=== PATIENT | male | born 1935 | race Two or more races ===

== ENCOUNTER 2019-03-24 02:12 | Emergency (ER) | payer MEDICARE, BC ==
[~2019-03-24] VITALS: Ht 175.3 cm; Wt 77.1 kg
[2019-03-24 02:17] VITALS: BP 127/82
--- NOTE | 2019-03-24 02:36 | NUR ---
RECTAL TEMP 101.7. AWARE.
--- NOTE | 2019-03-24 02:36 | NUR ---
TECH AT BEDSIDE FOR EKG
--- NOTE | 2019-03-24 02:48 | NUR ---
KE INITIATED. BLOOD DRAWN AND GIVEN TO LAB.
[2019-03-24 02:56] LABS: BASOPHILS # (AUTO) 0.1 /CMM (0.0-0.2); BASOPHILS % (AUTO) 1.2 % (0.0-2.0); EOSINOPHILS % (AUTO) 0.2 % (0.0-6.0); HEMATOCRIT 29 % (39-51); LYMPHOCYTES # (AUTO) 0.5 /CMM (0.8-4.8); LYMPHOCYTES % (AUTO) 4.1 % (20.0-44.0); MEAN CORPUSCULAR HGB CONC 31 g/dl (31.0-36.0); MEAN CORPUSCULAR VOLUME 92 fL (80-96); MONOCYTES # (AUTO) 1.5 /CMM (0.1-1.30); MONOCYTES % (AUTO) 12.4 % (2.0-12.0); NEUTROPHILS # (AUTO) 9.8 /CMM (1.8-8.9); NEUTROPHILS % (AUTO) 82.1 % (43.0-81.0); PLATELET COUNT (AUTO) 240 /CMM (150-450); RED BLOOD CELL COUNT(AUTO) 3.15 MIL/uL (4.5-6.0); WHITE BLOOD COUNT (AUTO) 11.9 K/uL (4.3-11.0)
[2019-03-24 03:00] LABS: CALCIUM, SERUM 10.3 mg/dL (8.5-10.1); CARBON DIOXIDE 24 mmol/L (21-32); CHLORIDE 105 mmol/L (98-107); CREATININE 4.8 mg/dL (0.6-1.3); GLUCOSE 150 mg/dL (74-106); POTASSIUM 4.6 mmol/L (3.5-5.1); SODIUM SERUM 138 mmol/L (136-145); UREA NITROGEN, BLOOD 74 mg/dL (7-18)
[2019-03-24] MEDS ORDERED: IBUPROFEN 400 MG TABLET PO ONE (03:00)
--- NOTE | 2019-03-24 03:04 | NUR ---
RADIOLOGY AT BEDSIDE FOR XRAY
[2019-03-24] MEDS ORDERED: IBUPROFEN 400 MG TABLET ONE (03:11)
[2019-03-24 03:13] LABS: ALANINE AMINOTRANSFERASE 14 U/L (12-78); ALBUMIN 2.9 g/dL (3.4-5.0); ALKALINE PHOSPHATASE 68 U/L (46-116); ASPARTATE AMINOTRANSFERASE 13 U/L (15-37); B-TYPE NATRIURETIC PEPTIDE 1036 PG/ML (0-125); BILIRUBIN,DIRECT 0.1 mg/dL (0.0-0.2); BILIRUBIN,TOTAL 0.3 mg/dL (0.2-1.0); TOTAL PROTEIN, SERUM 6.3 g/dL (6.4-8.2)
--- NOTE | 2019-03-24 03:26 | NUR ---
URINE COLLECTED AND SENT TO LAB
[2019-03-24 03:42] LABS: APPEARANCE,URINE Clear (CLEAR); BILIRUBIN,URINE Negative (NEGATIVE); BLOOD, URINE Small Ery/uL (NEGATIVE); COLOR,URINE Yellow (YELLOW); KETONES,URINE Negative (NEGATIVE); LEUKOCYTE ESTERASE ,URINE Negative (NEGATIVE); NITRITE, URINE Negative (NEGATIVE); PROTEIN,URINE >=300 mg/dl (NEGATIVE); UGLUCOSE Negative (NEGATIVE); UROBILINOGEN,URINE 0.2 EU/dL (0.2)
[2019-03-24 03:56] LABS: BACTERIA,URINE Few /HPF (None Seen); RBC,URINE 0-2 /HPF (0-2); SQUAMOUS EPITHELIAL CELL,UR Rare /HPF (None Seen); WBC,URINE 0-2 /HPF (0-3)
--- NOTE | 2019-03-24 05:02 | NUR ---
IV removed. Catheter intact and site benign. Pressure and 4x4 applied to site. No bleeding noted.Patient discharged to home in stable condition. Written and verbal after care instructions given. Patient'S FAMILY verbalizes understanding of instruction. PT TAKEN TO FAMILY VEHICLE VIA WHEELCHAIR.
== END 2019-03-24 05:07 | disposition home or self-care (01) ==
LOC: ER 02:16
DX: B34.9 Viral infection, unspecified (principal); R50.9 Fever, unspecified; E11.22 Type 2 diabetes mellitus with diabetic chronic kidney disease; N18.9 Chronic kidney disease, unspecified
CPT/HCPCS: 36415; 71045-TC; 80048-TC; 80076-TC; 81000-TC; 82962-TC; 83605-TC; 83880; 84484-TC; 85025-TC; 85730-TC; 87040-TC; 87086-TC

== ENCOUNTER 2019-03-28 07:38 | Inpatient (IN) | payer MEDICARE, BC ==
[~2019-03-28] VITALS: Ht 177.8 cm; Wt 76.7 kg
[2019-03-28] MEDS ORDERED: ACETAMINOPHEN ES 500 MG TABLET ONE (07:58)
[2019-03-28 07:59] LABS: BASOPHILS % (AUTO) 0.1 % (0.0-2.0); EOSINOPHILS % (AUTO) 0.4 % (0.0-6.0); HEMATOCRIT 27 % (39-51); HEMOGLOBIN 8.5 g/dL (13.5-17.5); LYMPHOCYTES # (AUTO) 0.3 /CMM (0.8-4.8); LYMPHOCYTES % (AUTO) 1.7 % (20.0-44.0); MEAN CORPUSCULAR HGB CONC 32 g/dl (31.0-36.0); MEAN CORPUSCULAR VOLUME 91 fL (80-96); MONOCYTES # (AUTO) 0.9 /CMM (0.1-1.30); NEUTROPHILS # (AUTO) 16.9 /CMM (1.8-8.9); NEUTROPHILS % (AUTO) 92.8 % (43.0-81.0); PLATELET COUNT (AUTO) 276 /CMM (150-450); RED BLOOD CELL COUNT(AUTO) 2.93 MIL/uL (4.5-6.0); WHITE BLOOD COUNT (AUTO) 18.3 K/uL (4.3-11.0)
[2019-03-28] MEDS ORDERED: ACETAMINOPHEN ES 500 MG TABLET PO ONE (08:00)
--- NOTE | 2019-03-28 08:11 | NUR ---
patient JEAN-CLAUDEConrad RA 89 From Home Fever "started was seen here wednesday Dx Viral syndrome-sent home NO improvement. worse now". connected to the monitor and pulse ox. kept comfortable, will continue to monitor accordingly.
[2019-03-28 08:18] LABS: ALANINE AMINOTRANSFERASE 26 U/L (12-78); ALBUMIN 2.3 g/dL (3.4-5.0); ALKALINE PHOSPHATASE 91 U/L (46-116); ASPARTATE AMINOTRANSFERASE 21 U/L (15-37); BILIRUBIN,DIRECT 0.1 mg/dL (0.0-0.2); BILIRUBIN,TOTAL 0.3 mg/dL (0.2-1.0); CALCIUM, SERUM 10.7 mg/dL (8.5-10.1); CARBON DIOXIDE 22 mmol/L (21-32); CHLORIDE 102 mmol/L (98-107); CREATININE 5.5 mg/dL (0.6-1.3); GLUCOSE 148 mg/dL (74-106); POTASSIUM 4.5 mmol/L (3.5-5.1); SODIUM SERUM 136 mmol/L (136-145); TOTAL PROTEIN, SERUM 6.4 g/dL (6.4-8.2)
[2019-03-28 08:20] LABS: UREA NITROGEN, BLOOD 97 mg/dL (7-18)
[2019-03-28 08:29] LABS: APPEARANCE,URINE Slightly Cloudy (CLEAR); BILIRUBIN,URINE Negative (NEGATIVE); BLOOD, URINE Moderate Ery/uL (NEGATIVE); COLOR,URINE Yellow (YELLOW); KETONES,URINE Negative (NEGATIVE); LEUKOCYTE ESTERASE ,URINE Negative (NEGATIVE); NITRITE, URINE Negative (NEGATIVE); PROTEIN,URINE 100 mg/dl (NEGATIVE); UGLUCOSE Negative (NEGATIVE); UROBILINOGEN,URINE 0.2 EU/dL (0.2)
[2019-03-28] MEDS ORDERED: IPRATROPIUM NEB FS 0.5 MG/2.5 ML AMPUL.NEB NEB ONE (08:30)
[2019-03-28] MEDS ORDERED: ALBUTEROL FS 2.5 MG/3 ML VIAL.NEB NEB ONE (08:30)
[2019-03-28] MEDS ORDERED: ALBUTEROL FS 2.5 MG/3 ML VIAL.NEB ONE (08:33)
[2019-03-28] MEDS ORDERED: IPRATROPIUM NEB FS 0.5 MG/2.5 ML AMPUL.NEB ONE (08:33)
[2019-03-28 08:39] LABS: BACTERIA,URINE Rare /HPF (None Seen); SQUAMOUS EPITHELIAL CELL,UR Few /HPF (None Seen); URINE AMORPHOUS URATE Few /HPF (None Seen); WBC,URINE 0-3 /HPF (0-3)
[2019-03-28] MEDS ORDERED: BUME1TAB8 PO (08:44)
[2019-03-28] MEDS ORDERED: WARF3TAB29 PO (08:45)
[2019-03-28] MEDS ORDERED: CALC667C6 PO (08:45)
[2019-03-28] MEDS ORDERED: PRED2.5T PO (08:45)
[2019-03-28] MEDS ORDERED: LOSA25TA27 PO (08:45)
[2019-03-28] MEDS ORDERED: TAMS-12 PO (08:45)
[2019-03-28] MEDS ORDERED: MYCO500T PO (08:45)
[2019-03-28] MEDS ORDERED: WARF6TAB23 PO (08:45)
[2019-03-28] MEDS ORDERED: ATOR20TA PO (08:45)
--- NOTE | 2019-03-28 08:45 | NUR ---
MÓNICA KHAN SPOKE TO DAUGHTER DAWOOD, PT ON COUMADIN 6MG ON MOTUWESA, AND COUMADIN 3MG ON THSU, NEXT PT-INR TODAY 03/28/19.
[2019-03-28] MEDS ORDERED: VANCOMYCIN 1 GM in IV D5W 250 ML IV ONE (09:00)
[2019-03-28] MEDS ORDERED: PIPERACILLIN /TAZOBACTAM 3.375 G in IV D5W 50 ML IV ONE (09:00)
--- NOTE | 2019-03-28 09:20 | NUR ---
EPIC PAGED ITS TAY.
[2019-03-28] MEDS ORDERED: IV NS 0.9% 1,000 ML BAG IV ONE (10:00)
[2019-03-28] MEDS ORDERED: MORPHINE SULFATE INJ 2 MG/ML DISP.SYRIN IV PRN (10:30)
[2019-03-28] MEDS ORDERED: HYDROCODONE/APAP 5/325MG 1 EACH TABLET PO PRN (10:30)
[2019-03-28] MEDS ORDERED: ONDANSETRON HCL/PF 4 MG/2 ML VIAL IVP PRN (10:30)
[2019-03-28] MEDS ORDERED: MAG HYDROX/AL HYDROX/SIMETH 30 ML UDC PO PRN (10:30)
[2019-03-28] MEDS ORDERED: MAGNESIUM HYDROXIDE 30 ML UDC PO PRN (10:30)
[2019-03-28] MEDS ORDERED: ACETAMINOPHEN 325 MG TABLET PO PRN (10:30)
[2019-03-28] MEDS ORDERED: TEMAZEPAM 15 MG CAPSULE PO PRN (10:30)
[2019-03-28] MEDS ORDERED: predniSONE 5 MG TABLET PO ONE (11:30)
[2019-03-28] MEDS ORDERED: FEE PK DOSING 1 MIN EA MC ONE (11:33)
--- NOTE | 2019-03-28 11:52 | NUR ---
WHEELED PATIENT TO TELE VIA [email or web address], ACCOMPANIED BY RN AND EMT TO ROOM 322 BED 1. NO APPARENT STRESS. ANIAPHEL AT BEDSIDE. TO ASSUME CARE.
--- NOTE | 2019-03-28 12:00 | NUR ---
CMM INSPECTOR OPENING NOTES RECEIVED PATIENT FROM [facility]URTO VIA NIKKY. ON 2 L/MIN VIA AR WITH AN 02SAT OF 96%. HOB ELEVATED. NO SOB OBSERVED. ALERT AND ORIENTED X4. SPEAKS SETSWANA AND FARSI. ON TELE MONITORING: SR 61. LAC # 18 INTACT AND PATENT. NOTED ABDOMEN DISTENDED, SOFT TO TOUCH AND NON-TENDER. PATIENT DENIES ANY C/O ABDOMINAL PAIN. BED IN LOWEST POSITION, LOCKED. ORIENTED TO ROOM, UNIT AND CALL LIGHT USE. BED ALARM ON.CALL LIGHT WITHIN REACH.
[2019-03-28] MEDS: WARFARIN SODIUM 2 MG TABLET PO SCH (12:58)
[2019-03-28 13:00] VITALS: BP 101/50
[2019-03-28] MEDS: PIPERACILLIN /TAZOBACTAM 2.25 G in IV D5W 50 ML IV SCH ×2 (13:46→20:24)
[2019-03-28 15:30] LABS: CREATININE, URINE 86.7 MG/DL (30.0-125.0); URINE TOTAL PROTEIN 159.5 mg/dL (0-11.9)
[2019-03-28 16:25] VITALS: BP 110/59
[2019-03-28] MEDS: LACTOBACILLUS RHAMNOSUS GG 1 EACH CAP.SPRINK PO SCH (17:32)
--- NOTE | 2019-03-28 18:49 | NUR ---
JAVA ARCHITECT CLOSING NOTES ALERT AND ORIENTED X4. DAUGHTER AND AT BEDSIDE. ON 2 L/MIN VIA NC WITH AN 02SAT OF 96%. HOB ELEVATED. NO S/S OF RESPIRATORY DISTRESS. DENIES ANY C/O PAIN NOR DISCOMFORT. LAC # 18 INTACT AND PATENT INFUSING NS @ 50ML/HR. BED IN LOWEST POSITION, LOCKED. BED ALARM ON.CALL LIGHT WITHIN REACH. ENDORSED TO [facility] SHIFT NURSE FOR CONTINUATION OF CARE.
--- NOTE | 2019-03-28 19:30 | NUR ---
SOFTWARE BUILD ENGINEER OPENING NOTE RECEIVED PATIENT IN BED. A/OX4. PATIENT ON OXYGEN 2L/MIN. RESPIRATION ARE EVEN AND UNLABORED. NO SIGNS OF SOB. DENIES PAIN AT THIS TIME. 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 IV ACCESS LEFT AC GAUGE 18 RUNNING NS@50ML/HR. BED IS LOW AND LOCKED, SIDE RAILS X2, HOB ELEVATED 30 DEGREES. CALL LIGHT WITHIN REACH. WILL CONTINUE TO MONITOR.
[2019-03-28 20:00] VITALS: BP 117/60
[2019-03-28 20:06] VITALS: BP 117/60
[2019-03-28] MEDS: MYCOPHENOLATE MOFETIL 250 MG CAPSULE PO SCH (20:23)
--- NOTE | 2019-03-28 21:15 | NUR ---
POULTRY FARMWORKER NOTE 1210 COLLECTED STOOL OB. NOTIFIED LAB FOR PAINTING MACHINE OPERATOR.
[2019-03-28] MEDS: ATORVASTATIN 10 MG TABLET PO SCH (21:57)
[2019-03-28] MEDS: TAMSULOSIN 0.4 MG CAP.SR.24H PO SCH (21:57)
[2019-03-28 23:54] LABS: OCCULT BLOOD STOOL NEGATIVE (NEGATIVE)
[2019-03-29] VITALS (7 sets, daily range): BP systolic 112–130; BP diastolic 45–65
[2019-03-29] MEDS: PIPERACILLIN /TAZOBACTAM 2.25 G in IV D5W 50 ML IV SCH ×2 (04:29→12:24)
--- NOTE | 2019-03-29 06:30 | NUR ---
TOP PRECIPITATOR OPERATOR HELPER CLOSING NOTE PATIENT IS RESTING IN BED. A/OX4. PATIENT ON OXYGEN 2L/MIN. RESPIRATION ARE EVEN AND UNLABORED. NO SIGNS OF SOB NOTED THROUGHOUT SHIFT. NO COMPLAINTS OF PAIN THROUGHOUT SHIFT. EXTERNAL TELE MONITOR READS SINUS RHYTHM WITH 1ST DEGREE BLOCK AT HEART RATE OF 60. IV ACCESS MAINTAINED IN LEFT AC GAUGE 18 RUNNING NS@50ML/HR. ALL NURSING NEEDS MET. NO MANIFESTATIONS OF DISTRESS THROUGHOUT SHIFT. SKIN KEPT CLEAN AND DRY. BED IS LOW AND LOCKED, SIDE RAILS X2, HOB ELEVATED 30 DEGREES. CALL LIGHT WITHIN REACH. WILL ENDORSE TO NEXT SHIFT FOR BRENT.
[2019-03-29] MEDS: IV NS 0.9% 1,000 ML IV PRN (06:45)
[2019-03-29 07:18] LABS: BASOPHILS % (AUTO) 0.2 % (0.0-2.0); EOSINOPHILS % (AUTO) 0.8 % (0.0-6.0); HEMATOCRIT 25 % (39-51); HEMOGLOBIN 7.8 g/dL (13.5-17.5); LYMPHOCYTES # (AUTO) 0.3 /CMM (0.8-4.8); LYMPHOCYTES % (AUTO) 1.5 % (20.0-44.0); MEAN CORPUSCULAR HGB CONC 32 g/dl (31.0-36.0); MEAN CORPUSCULAR VOLUME 91 fL (80-96); MONOCYTES # (AUTO) 0.7 /CMM (0.1-1.30); MONOCYTES % (AUTO) 3.7 % (2.0-12.0); NEUTROPHILS # (AUTO) 18.7 /CMM (1.8-8.9); NEUTROPHILS % (AUTO) 93.8 % (43.0-81.0); PLATELET COUNT (AUTO) 284 /CMM (150-450); RED BLOOD CELL COUNT(AUTO) 2.71 MIL/uL (4.5-6.0); WHITE BLOOD COUNT (AUTO) 19.9 K/uL (4.3-11.0)
--- NOTE | 2019-03-29 07:29 | NUR ---
INDUSTRIAL [employer]MICALS SUPERVISOR OPENING NOTE PATIENT IN BED RESTING COMFORTABLY. PATIENT IN NO ACUTE DISTRESS. NO SOB NOTED. PATIENT BREATHING IS EVEN AND UNLABORED. PATIENT BREATHING ON OXYGEN NC AT 2L. NO FACIAL GRIMACING NOTED. IV INTACT. PATIENT VERBALIZED CONCERNS, CONCERNS AND NEEDS ADDRESSED. PATIENT BED IS LOCKED AND IN LOWEST POSITION. CALL LIGHT WITHIN REACH. WILL CONTINUE TO MONITOR.
[2019-03-29 07:46] LABS: ALANINE AMINOTRANSFERASE 22 U/L (12-78); ALBUMIN 1.9 g/dL (3.4-5.0); ALKALINE PHOSPHATASE 81 U/L (46-116); ASPARTATE AMINOTRANSFERASE 19 U/L (15-37); BILIRUBIN,TOTAL 0.2 mg/dL (0.2-1.0); CALCIUM, SERUM 9.1 mg/dL (8.5-10.1); CARBON DIOXIDE 20 mmol/L (21-32); CHLORIDE 103 mmol/L (98-107); CREATININE 5.3 mg/dL (0.6-1.3); GLUCOSE 91 mg/dL (74-106); PHOSPHORUS 4.8 mg/dL (2.5-4.9); POTASSIUM 4.3 mmol/L (3.5-5.1); SODIUM SERUM 137 mmol/L (136-145); TOTAL PROTEIN, SERUM 5.8 g/dL (6.4-8.2)
[2019-03-29 07:51] LABS: UREA NITROGEN, BLOOD 97 mg/dL (7-18)
[2019-03-29 08:01] LABS: IRON, SERUM 27 ug/dl (50-175); TOTAL IRON BINDING CAPACITY 130 ug/dl (250-450)
--- NOTE | 2019-03-29 08:04 | NUR ---
MEDICAL REFERRAL COORDINATOR NOTE PATIENT CRITICAL VALUE BUN 97. NO REPORT FROM LAB. TAY ORR NOTIFIED AND MADE AWARE. NO NEW ORDERS. FOLLOWED UP SLIDING SCALE WITH TAY ORR. PER TAY WILL INPUT FOR DM.
[2019-03-29 08:20] LABS: CHOLESTEROL 58 mg/dL (<200); CREATINE KINASE, TOTAL 53 U/L (39-308); FERRITIN 2134 ng/mL (8-388); HDL CHOLESTEROL 10 mg/dL (40-60); LDL 30 mg/dL (0-99); THYROID STIMULATING HORMONE 0.149 uIU/mL (0.358-3.74); TRIGLYCERIDES 152 mg/dL (30-150)
[2019-03-29] MEDS: LACTOBACILLUS RHAMNOSUS GG 1 EACH CAP.SPRINK PO SCH ×2 (08:25→17:06)
[2019-03-29] MEDS: predniSONE 5 MG TABLET PO SCH (08:25)
[2019-03-29] MEDS: MYCOPHENOLATE MOFETIL 250 MG CAPSULE PO SCH ×2 (08:25→20:15)
--- NOTE | 2019-03-29 08:47 | NUR ---
MS RN NOTE PER TAY ORR, PATIENT NOT DM. WILL CONTINUE TO MONITOR.
[2019-03-29] MEDS ORDERED: LOSARTAN POTASSIUM 25 MG TABLET PO SCH (09:00)
[2019-03-29] MEDS ORDERED: BUMETANIDE (1 MG) 1 MG TABLET PO SCH (09:00)
[2019-03-29] MEDS: WARFARIN SODIUM 2 MG TABLET PO SCH (13:00)
--- NOTE | 2019-03-29 14:20 | NUR ---
MS LLAMAS NOTE HELD COUMADIN DUE TO RECENT INR RESULTING 3.79. NOTIFIED TAY ORR. WILL CONTINUE TO MONITOR. Addendum: 03/29/19 at 1434 by TUTU WHITE RN ORDERS TO HOLD FOR ONE DAY, TODAY.
[2019-03-29] MEDS ORDERED: DEXTROSE 50%-WATER 50 ML DISP.SYRIN IV PRN (16:30)
[2019-03-29] MEDS: BLOOD SUGAR DIAGNOSTIC 1 EACH STRIP IN SCH ×2 (17:01→22:00)
[2019-03-29] MEDS: INSULIN REGULAR, HUMAN 100 UNIT/ML 3 ML VIAL SQ PRN (17:04)
[2019-03-29 17:59] LABS: OCCULT BLOOD STOOL NEGATIVE (NEGATIVE)
--- NOTE | 2019-03-29 18:24 | NUR ---
MS RN CLOSING NOTE PATIENT IN BED RESTING COMFORTABLY. PATIENT BREATHING ON OXYGEN NC 2L. PATIENT BREATHING IS EVEN AND UNLABORED. PATIENT IN NO ACUTE DISTRESS. NO SOB NOTED. FAMILY AT THE BEDSIDE. PATIENT VERBALIZED CONCERNS, CONCERNS WERE ADDRESSED. ALL NURSING NEEDS MET. PATIENT KEPT CLEAN, DRY, REPOSITIONED, AND COMFORTABLE. PATIENT IV INTACT. HOB IS ELEVATED. SAFETY PRECAUTIONS IN PLACE. PATIENT BED IS LOCKED AND IN LOWEST POSITION. CALL LIGHT WITHIN REACH. WILL ENDORSE CARE TO PM SHIFT FOR BRENT.
[2019-03-29] MEDS ORDERED: AZITHROMYCIN 250 MG TABLET PO ONE (19:30)
--- NOTE | 2019-03-29 19:30 | NUR ---
MS RN OPENING NOTE RECEIVED PATIENT IN BED. A/OX4. PATIENT ON OXYGEN 2L/MIN. RESPIRATION ARE EVEN AND UNLABORED. NO SIGNS OF SOB. DENIES PAIN AT THIS TIME. IV ACCESS LEFT AC GAUGE 18 RUNNING NS@50ML/HR. BED IS LOW AND LOCKED, SIDE RAILS X2, HOB IN HIGH FOWLERS. CALL LIGHT WITHIN REACH.FAMILY AT THE BEDSIDE. WILL CONTINUE TO MONITOR
[2019-03-29] MEDS: CEFEPIME 1 GM in IV D5W 50 ML IV SCH (20:21)
[2019-03-29] MEDS ORDERED: CEFEPIME 1 GM in IV D5W 50 ML IV SCH (21:00)
[2019-03-29] MEDS: ATORVASTATIN 10 MG TABLET PO SCH (21:09)
[2019-03-29] MEDS: TAMSULOSIN 0.4 MG CAP.SR.24H PO SCH (21:09)
--- NOTE | 2019-03-29 21:21 | NUR ---
MS RN NOTE 2200 ACCUCHECK READS A BLOOD SUGAR OF 124, NO INSULIN GIVEN.
[2019-03-30] MEDS: IV NS 0.9% 1,000 ML IV PRN (04:45)
[2019-03-30 06:18] LABS: BASOPHILS # (AUTO) 0.1 /CMM (0.0-0.2); BASOPHILS % (AUTO) 0.3 % (0.0-2.0); EOSINOPHILS % (AUTO) 1.9 % (0.0-6.0); HEMATOCRIT 29 % (39-51); HEMOGLOBIN 8.9 g/dL (13.5-17.5); LYMPHOCYTES # (AUTO) 0.7 /CMM (0.8-4.8); LYMPHOCYTES % (AUTO) 4.4 % (20.0-44.0); MEAN CORPUSCULAR HGB CONC 31 g/dl (31.0-36.0); MEAN CORPUSCULAR VOLUME 92 fL (80-96); MONOCYTES # (AUTO) 1.1 /CMM (0.1-1.30); MONOCYTES % (AUTO) 7.5 % (2.0-12.0); NEUTROPHILS % (AUTO) 85.9 % (43.0-81.0); PLATELET COUNT (AUTO) 325 /CMM (150-450); RED BLOOD CELL COUNT(AUTO) 3.14 MIL/uL (4.5-6.0); WHITE BLOOD COUNT (AUTO) 15.1 K/uL (4.3-11.0)
--- NOTE | 2019-03-30 06:33 | NUR ---
MS RN CLOSING NOTE PATIENT IS RESTING IN BED. A/OX4. PATIENT ON OXYGEN 2L/MIN VIA NASAL CANNULA. RESPIRATION ARE EVEN AND UNLABORED. NO SIGNS OF SOB NOTED THROUGHOUT SHIFT. NO COMPLAINTS OF PAIN THROUGHOUT SHIFT. IV ACCESS MAINTAINED IN LEFT AC GAUGE 18 RUNNING NS@50ML/HR. ALL NURSING NEEDS MET. NO DISTRESS THROUGHOUT SHIFT. BED IS LOW AND LOCKED, SIDE RAILS X2, HOB IS ELEVATED 30 DEGREES. CALL LIGHT WITHIN REACH. WILL ENDORSE TO NEXT SHIFT FOR BRENT.
--- NOTE | 2019-03-30 06:52 | NUR ---
MS RN NOTE 2137 ACCUCHECK READS BS 102. NO INSULIN GIVEN BECAUSE WITHIN NORMAL RANGE.
[2019-03-30 06:54] LABS: ALANINE AMINOTRANSFERASE 38 U/L (12-78); ALKALINE PHOSPHATASE 102 U/L (46-116); ASPARTATE AMINOTRANSFERASE 33 U/L (15-37); BILIRUBIN,TOTAL 0.2 mg/dL (0.2-1.0); CALCIUM, SERUM 8.8 mg/dL (8.5-10.1); CARBON DIOXIDE 21 mmol/L (21-32); CHLORIDE 104 mmol/L (98-107); CREATININE 5.1 mg/dL (0.6-1.3); GLUCOSE 110 mg/dL (74-106); PHOSPHORUS 3.8 mg/dL (2.5-4.9); POTASSIUM 4.1 mmol/L (3.5-5.1); SODIUM SERUM 138 mmol/L (136-145); TOTAL PROTEIN, SERUM 6.4 g/dL (6.4-8.2)
[2019-03-30 07:00] LABS: UREA NITROGEN, BLOOD 95 mg/dL (7-18)
--- NOTE | 2019-03-30 07:34 | NUR ---
RN OPENING NOTE PT WAS RECEIVED IN BED AT LOWEST AND LOCKED POSITION WITH SIDE RAILS UP X2, A/O X4 BREATHING EVEN AND UNLABORED ON RA, NO S/S OF ANY DISTRESS OR PAIN AT THIS TIME, IV IS PATENT AND INTACT WITH IVF RUNNING, SAFETY PRECAUTIONS IN PLACE, CALL LIGHT WITHIN REACH, WILL MONITOR PT ACCORDINGLY
[2019-03-30] MEDS: BLOOD SUGAR DIAGNOSTIC 1 EACH STRIP IN SCH ×4 (07:51→21:17)
[2019-03-30 08:00] VITALS: BP 125/60
[2019-03-30] MEDS: predniSONE 5 MG TABLET PO SCH (08:02)
[2019-03-30] MEDS: LACTOBACILLUS RHAMNOSUS GG 1 EACH CAP.SPRINK PO SCH ×2 (08:02→16:09)
[2019-03-30] MEDS: MYCOPHENOLATE MOFETIL 250 MG CAPSULE PO SCH ×2 (08:02→21:12)
[2019-03-30 08:07] LABS: *SPE A/G RATIO 0.8 (0.7-1.7); *SPE ALBUMIN 2.2 g/dL (2.9-4.4); *SPE ALPHA-1-GLOBULIN 0.5 g/dL (0.0-0.4); *SPE ALPHA-2-GLOBULIN 1.2 g/dL (0.4-1.0); *SPE BETA GLOBULIN 0.7 g/dL (0.7-1.3); *SPE GLOBULIN, TOTAL 2.8 g/dL (2.2-3.9); *SPE M-SPIKE 0.1 g/dL (Not Observed); *SPEGAMMA GLOBULIN 0.4 g/dL (0.4-1.8)
[2019-03-30 08:12] LABS: BAND % (MANUAL) 1 % (0.0-5.0); EOSINOPHILS % (MANUAL) 1 % (0-4); LYMPHOCYTES % (MANUAL) 6 % (16-48); MONOCYTES % (MANUAL) 2 % (0-11.0); NEUTROPHILS % (MANUAL) 91 (42-76); REACTIVE LYMPHOCYTES 1 % (0-0)
[2019-03-30 09:19] LABS: OCCULT BLOOD STOOL NEGATIVE (NEGATIVE)
[2019-03-30] MEDS ORDERED: VANCOMYCIN HCL 0.75 GM in IV D5W 250 ML IV SCH (10:00)
[2019-03-30] MEDS: INSULIN REGULAR, HUMAN 100 UNIT/ML 3 ML VIAL SQ PRN ×3 (12:09→21:18)
[2019-03-30] MEDS ORDERED: WARFARIN SODIUM 1 MG TABLET PO SCH (13:00)
[2019-03-30 16:12] VITALS: BP 128/57
--- NOTE | 2019-03-30 18:37 | NUR ---
RN CLOSING NOTE PT IN BED AT LOWEST AND LOCKED POSITION WITH SIDE RAILS UP, A/O X3 BREATHING EVEN AND UNLABORED WITH NO DISTRESS OR PAIN AT THIS TIME, IV IS PATENT AND INTACT WITH IVF RUNNING, SAFETY PRECAUTIONS IN PLACE, CALL LIGHT WITHIN REACH, ALL NEEDS ATTENDED TO, WILL ENDORSE TO NIGHT RN FOR BRENT.
--- NOTE | 2019-03-30 19:05 | NUR ---
MS RN OPENING NOTES Patient received in bed with head of bed elevated, alert, oriented x 3. Family at bedside. Breathing even and unlabored. Not in any distress. Peripheral IV infusing at 50mL/hr. No complaints at this time. Safety measures in place, call light within reach, bed in low, locked position. Will continue to monitor accordingly
[2019-03-30] MEDS: CEFEPIME 1 GM in IV D5W 50 ML IV SCH (19:41)
[2019-03-30 20:00] VITALS: BP 137/60
[2019-03-30] MEDS ORDERED: AZITHROMYCIN 250 MG TABLET PO SCH (20:00)
[2019-03-30] MEDS: ATORVASTATIN 10 MG TABLET PO SCH (21:12)
[2019-03-30] MEDS: TAMSULOSIN 0.4 MG CAP.SR.24H PO SCH (21:12)
--- NOTE | 2019-03-30 21:17 | NUR ---
RN NOTES BSL checked- 110mg/dL. No insulin coverage given. Provided snacks
[2019-03-31] MEDS: INSULIN REGULAR, HUMAN 100 UNIT/ML 3 ML VIAL SQ PRN ×2 (06:39→11:50)
[2019-03-31] MEDS: BLOOD SUGAR DIAGNOSTIC 1 EACH STRIP IN SCH ×2 (06:39→11:51)
--- NOTE | 2019-03-31 06:41 | NUR ---
MS RN CLOSING NOTES Patient still sleeping in bed, easy to arouse. Breathing even and unlabored. Not in any distress. Peripheral IV infusing at 50mL/hr. BSL checked- 104mg/dL. No insulin given per sliding scale. No acute changes overnight. All needs attended. Safety measures maintained. Will endorse BRENT to oncoming RN
[2019-03-31 07:42] LABS: BASOPHILS % (AUTO) 0.2 % (0.0-2.0); EOSINOPHILS % (AUTO) 1.3 % (0.0-6.0); HEMATOCRIT 26 % (39-51); HEMOGLOBIN 7.9 g/dL (13.5-17.5); LYMPHOCYTES # (AUTO) 0.6 /CMM (0.8-4.8); LYMPHOCYTES % (AUTO) 4.4 % (20.0-44.0); MEAN CORPUSCULAR HGB CONC 31 g/dl (31.0-36.0); MEAN CORPUSCULAR VOLUME 92 fL (80-96); MONOCYTES # (AUTO) 1.3 /CMM (0.1-1.30); MONOCYTES % (AUTO) 9.9 % (2.0-12.0); NEUTROPHILS # (AUTO) 10.8 /CMM (1.8-8.9); NEUTROPHILS % (AUTO) 84.2 % (43.0-81.0); PLATELET COUNT (AUTO) 325 /CMM (150-450); RED BLOOD CELL COUNT(AUTO) 2.78 MIL/uL (4.5-6.0); WHITE BLOOD COUNT (AUTO) 12.8 K/uL (4.3-11.0)
[2019-03-31 08:00] VITALS: BP 137/59
[2019-03-31] MEDS: MYCOPHENOLATE MOFETIL 250 MG CAPSULE PO SCH (08:02)
[2019-03-31] MEDS: LACTOBACILLUS RHAMNOSUS GG 1 EACH CAP.SPRINK PO SCH (08:02)
[2019-03-31] MEDS: predniSONE 5 MG TABLET PO SCH (08:02)
[2019-03-31 08:05] LABS: CALCIUM, SERUM 8.5 mg/dL (8.5-10.1); CARBON DIOXIDE 18 mmol/L (21-32); CHLORIDE 109 mmol/L (98-107); CREATININE 4.4 mg/dL (0.6-1.3); GLUCOSE 111 mg/dL (74-106); POTASSIUM 4.3 mmol/L (3.5-5.1); SODIUM SERUM 140 mmol/L (136-145)
[2019-03-31 08:06] LABS: UREA NITROGEN, BLOOD 98 mg/dL (7-18)
[2019-03-31] MEDS: WARFARIN SODIUM 2 MG TABLET PO SCH (12:20)
--- NOTE | 2019-03-31 12:50 | NUR ---
RN NOTE ATTEMPTED TO TAKE PHOTOS OF PATIENT SKIN BUT HE REFUSED, HE WAS INFORMED AND EDUCATED TO WHY WE TAKE PHOTOS BUT HE STILL REFUSED.
--- NOTE | 2019-03-31 13:29 | NUR ---
DISCHARGE NOTE PT WAS D/C BACK HOME AT THIS TIME IN MEDICALLY STABLE CONDITION WITH HIS DAUGHTER DAWOOD. ALL D/C PAPERWORK, EXITCARE, AND BELONGING LIST WERE SIGNED, DISCUSSED, AND HANDED TO THE PT. PRESCRIPTION WAS GIVEN TO THEM WELL ALL BELONGINGS WERE TAKEN BY THE PATIENT AND HIS DAUGHTER AT THIS TIME. PT REFUSED FOR PHOTOS OF SKIN TO BE TAKEN. IV AND ID BAND WERE REMOVED. ALL NEEDS WERE ATTENDED TO DURING HIS STAY. PT LEFT AT THIS TIME IN STABLE CONDITION VIA WHEELCHAIR AND LEFT WITH HIS DAUGHTER VIA THEIR PRIVATE CAR
== END 2019-03-31 13:25 | disposition home or self-care (01) | DRG 871 ==
LOC: ER 07:40 → TELE 11:19 → MED 03-29 08:04
PROVIDERS: ADMIT Nurse Practitioner Acute Care; ATTEND Nurse Practitioner Acute Care
DX: A41.9 Sepsis, unspecified organism (principal); G93.41 Metabolic encephalopathy; J18.9 Pneumonia, unspecified organism; N17.0 Acute kidney failure with tubular necrosis; E44.0 Moderate protein-calorie malnutrition; I13.2 Hypertensive heart and chronic kidney disease with heart failure and with stage 5 chronic kidney disease, or end stage renal disease; N18.5 Chronic kidney disease, stage 5; I25.10 Atherosclerotic heart disease of native coronary artery without angina pectoris; E11.22 Type 2 diabetes mellitus with diabetic chronic kidney disease; I48.0 Paroxysmal atrial fibrillation; E83.52 Hypercalcemia; Z95.1 Presence of aortocoronary bypass graft; Z86.711 Personal history of pulmonary embolism; D63.8 Anemia in other chronic diseases classified elsewhere; I50.9 Heart failure, unspecified; N40.0 Benign prostatic hyperplasia without lower urinary tract symptoms; Z79.01 Long term (current) use of anticoagulants; E88.09 Other disorders of plasma-protein metabolism, not elsewhere classified; Z86.718 Personal history of other venous thrombosis and embolism; D63.1 Anemia in chronic kidney disease; Z85.828 Personal history of other malignant neoplasm of skin; R65.20 Severe sepsis without septic shock; M32.14 Glomerular disease in systemic lupus erythematosus; Z68.24 Body mass index [BMI] 24.0-24.9, adult; Z79.52 Long term (current) use of systemic steroids
CPT/HCPCS: 36415; 71045-TC; 76770-TC; 80048-TC; 80053-TC; 80061-TC; 80076-TC; 80202-TC; 81000-TC; 82272-TC; 82550-TC; 82570-TC; 82728-TC; 82962-TC; 83540-TC; 83605-TC; 83735-TC; 83970; 84100-TC; 84155; 84155-TC; 84165; 84300-TC; 84443-TC; 84484-TC; 85025-TC; 85610-TC; 85730-TC; 87040-TC; 87081-TC; 87086-TC; 93307-TC; 94799-TC; 97110-TC; 97116-TC; 97530-TC; G0378; J0692; J1815; J2270; J2543; J3370; J7030; J7040; J7060; J7512; J7517

== ENCOUNTER 2024-05-10 02:42 | Emergency (ER) | payer MEDICARE, OTHER ==
[~2024-05-10] VITALS: Ht 165.1 cm; Wt 68.0 kg
[~2024-05-10 02:42] MED LIST: ATOR20TA PO; BUME1TAB8 PO; CALC667C6 PO; LOSA25TA27 PO; MYCO500T PO; PRED2.5T PO; TAMS-12 PO; WARF3TAB29 PO; WARF6TAB23 PO
[2024-05-10 05:06] VITALS: BP 135/72; TEMP 98.9; O2SAT 99
[2024-05-10] MEDS ORDERED: HYDR-4076 PO (10:49)
[2024-05-10] MEDS ORDERED: PRED1TAB PO (10:49)
[2024-05-10] MEDS ORDERED: DOXA2TAB2 PO (10:49)
[2024-05-10] MEDS ORDERED: AMLO-212 PO (10:49)
[2024-05-10] MEDS ORDERED: APIX2.5T PO (10:49)
[2024-05-10] MEDS ORDERED: SEVE800T28 PO (10:49)
== END 2024-05-10 05:06 | disposition home or self-care (01) ==
LOC: ER 02:45
DX: T82.838A Hemorrhage due to vascular prosthetic devices, implants and grafts, initial encounter (principal); E11.22 Type 2 diabetes mellitus with diabetic chronic kidney disease; Z98.890 Other specified postprocedural states; W01.0XXA Fall on same level from slipping, tripping and stumbling without subsequent striking against object, initial encounter; Y84.1 Kidney dialysis as the cause of abnormal reaction of the patient, or of later complication, without mention of misadventure at the time of the procedure
CPT/HCPCS: 73060-TC

== ENCOUNTER 2024-05-10 09:37 | Inpatient (IN) | payer MEDICARE, OTHER ==
[~2024-05-10] VITALS: Ht 170.2 cm; Wt 68.0 kg
[2024-05-10] MEDS ORDERED: ACETAMINOPHEN ES 500 MG TABLET ONE (09:49)
[2024-05-10] MEDS: ACETAMINOPHEN ES 500 MG TABLET PO ONE (09:54)
[2024-05-10 10:04] LABS: BASOPHILS % (AUTO) 0.5 % (0.0-2.0); EOSINOPHILS % (AUTO) 0.2 % (0.0-6.0); HEMATOCRIT 32 % (39-51); HEMOGLOBIN 10.2 g/dL (13.5-17.5); LYMPHOCYTES # (AUTO) 0.6 K/uL (0.8-4.8); LYMPHOCYTES % (AUTO) 6.1 % (20.0-44.0); MEAN CORPUSCULAR HEMOGLOBIN 31 PG (26.0-33.0); MEAN CORPUSCULAR HGB CONC 32 g/dl (31.0-36.0); MEAN CORPUSCULAR VOLUME 95 fL (80-96); MONOCYTES # (AUTO) 0.5 K/uL (0.1-1.30); MONOCYTES % (AUTO) 5.8 % (2.0-12.0); NEUTROPHILS % (AUTO) 87.4 % (43.0-81.0); PLATELET COUNT (AUTO) 64 K/uL (150-450); RED BLOOD CELL COUNT(AUTO) 3.34 MIL/uL (4.5-6.0); RED CELL DISTRIBUTION WIDTH 15.2 % (11.5-15.0); WHITE BLOOD COUNT (AUTO) 9.2 K/uL (4.3-11.0)
[2024-05-10 10:13] LABS: CALCIUM, SERUM 8.1 mg/dL (8.5-10.1); CARBON DIOXIDE 28 mmol/L (21-32); CHLORIDE 109 mmol/L (98-107); CREATININE 5.1 mg/dL (0.6-1.3); GLUCOSE 82 mg/dL (74-106); POTASSIUM 5.8 mmol/L (3.5-5.1); SODIUM SERUM 142 mmol/L (136-145); UREA NITROGEN, BLOOD 49 mg/dL (7-18)
[2024-05-10] MEDS: PIPERACILLIN /TAZOBACTAM 3.375 G in IV D5W 50 ML IV ONE (10:18)
[2024-05-10 10:19] LABS: ALANINE AMINOTRANSFERASE 14 U/L (12-78); ALBUMIN 2.7 g/dL (3.4-5.0); ALKALINE PHOSPHATASE 80 U/L (46-116); ASPARTATE AMINOTRANSFERASE 19 U/L (15-37); BILIRUBIN,DIRECT 0.2 mg/dL (0.0-0.2); BILIRUBIN,TOTAL 0.7 mg/dL (0.2-1.0); INR 1.2 (0.91-1.10); PROTHROMBIN TIME 12.6 SECS (9.2-11.1); TOTAL PROTEIN, SERUM 5.3 g/dL (6.4-8.2)
[2024-05-10 10:22] LABS: LACTIC ACID 1.4 mmol/L (0.4-2.0)
[2024-05-10 10:23] LABS: LYMPHOCYTES % (MANUAL) 7 % (16-48); MONOCYTES % (MANUAL) 2 % (0-11.0); NEUTROPHILS % (MANUAL) 91 (42-76)
[2024-05-10 10:26] LABS: ANISOCYTOSIS 1+; OVALOCYTES 1+; PLATELET ESTIMATE DECREASED
[2024-05-10] MEDS: IV NS 0.9% 500 ML BAG IV ONE (10:43)
[2024-05-10 10:44] LABS: APPEARANCE,URINE CLEAR (CLEAR); BILIRUBIN,URINE NEGATIVE (NEGATIVE); BLOOD, URINE TRACE-INTA Ery/uL (NEGATIVE); COLOR,URINE YELLOW (YELLOW); KETONES,URINE NEGATIVE (NEGATIVE); LEUKOCYTE ESTERASE ,URINE NEGATIVE (NEGATIVE); NITRITE, URINE NEGATIVE (NEGATIVE); PROTEIN,URINE 3+ mg/dl (NEGATIVE); UGLUCOSE NEGATIVE (NEGATIVE); UROBILINOGEN,URINE 0.2 EU/dL (0.2)
[2024-05-10] MEDS: VANCOMYCIN 1 GM in IV D5W 250 ML IV ONE (10:44)
[2024-05-10] MEDS ORDERED: APIX2.5T PO (10:49)
[2024-05-10] MEDS ORDERED: DOXA2TAB2 PO (10:49)
[2024-05-10] MEDS ORDERED: PRED1TAB PO (10:49)
[2024-05-10] MEDS ORDERED: HYDR-4076 PO (10:49)
[2024-05-10] MEDS ORDERED: AMLO-212 PO (10:49)
[2024-05-10] MEDS ORDERED: SEVE800T28 PO (10:49)
[2024-05-10 11:05] LABS: ADD URINE CULTURE NO
[2024-05-10] MEDS ORDERED: SODIUM POLYSTYRENE SULFONATE 15 G/60 ML BOTTLE ONE (11:05)
[2024-05-10 11:08] LABS: BACTERIA,URINE Rare /HPF (None Seen); MUCUS,URINE Few /LPF (None Seen); SQUAMOUS EPITHELIAL CELL,UR None Seen /HPF (None Seen)
[2024-05-10] MEDS: SODIUM POLYSTYRENE SULFONATE 15 G/60 ML BOTTLE PO ONE (11:16)
[2024-05-10] MEDS ORDERED: ALBUTEROL FS 2.5 MG/3 ML VIAL.NEB ONE (11:35)
[2024-05-10 11:40] VITALS: O2SAT 96
[2024-05-10] MEDS: ALBUTEROL FS 2.5 MG/3 ML VIAL.NEB NEB ONE (11:40)
[2024-05-10 11:50] VITALS: O2SAT 100
[2024-05-10 12:50] VITALS: BP 102/42; TEMP 97.9; O2SAT 97
[2024-05-10] MEDS ORDERED: ONDANSETRON HCL/PF 4 MG/2 ML VIAL IVP PRN (13:00)
[2024-05-10] MEDS ORDERED: MAG HYDROX/AL HYDROX/SIMETH 30 ML UDC PO PRN (13:00)
[2024-05-10] MEDS ORDERED: MAGNESIUM HYDROXIDE 30 ML UDC PO PRN (13:00)
[2024-05-10] MEDS ORDERED: Z GUARD REMEDY 4 OZ OINT TP PRN (13:00)
[2024-05-10 13:35] LABS: THYROID STIMULATING HORMONE 1.47 uIU/mL (0.358-3.74)
[2024-05-10] MEDS: IV NS 0.9% 1,000 ML IV PRN (15:22)
[2024-05-10] MEDS ORDERED: CEFEPIME 1 GM in IV D5W 50 ML IV SCH (15:30)
[2024-05-10 16:00] VITALS: BP 118/48; TEMP 97.3; O2SAT 94
[2024-05-10] MEDS: CEFEPIME 1 GM in IV D5W 50 ML IV SCH (16:32)
[2024-05-10 20:00] VITALS: BP 111/42; TEMP 100; O2SAT 96
[2024-05-10 20:50] VITALS: TEMP 99
[2024-05-11] VITALS: BP 115/46; TEMP 100; O2SAT 95
[2024-05-11 01:00] VITALS: TEMP 99.1
[2024-05-11] MEDS: ACETAMINOPHEN 325 MG TABLET PO PRN (04:21)
[2024-05-11 04:38] VITALS: BP 106/70; TEMP 98.6; O2SAT 97
[2024-05-11 07:20] LABS: BASOPHILS % (AUTO) 0.3 % (0.0-2.0); HEMATOCRIT 23 % (39-51); HEMOGLOBIN 7.6 g/dL (13.5-17.5); LYMPHOCYTES # (AUTO) 0.9 K/uL (0.8-4.8); MEAN CORPUSCULAR HEMOGLOBIN 31 PG (26.0-33.0); MEAN CORPUSCULAR HGB CONC 33 g/dl (31.0-36.0); MEAN CORPUSCULAR VOLUME 94 fL (80-96); MONOCYTES # (AUTO) 0.7 K/uL (0.1-1.30); MONOCYTES % (AUTO) 6.9 % (2.0-12.0); NEUTROPHILS # (AUTO) 8.6 K/uL (1.8-8.9); NEUTROPHILS % (AUTO) 83.8 % (43.0-81.0); PLATELET COUNT (AUTO) 52 K/uL (150-450); RED BLOOD CELL COUNT(AUTO) 2.47 MIL/uL (4.5-6.0); RED CELL DISTRIBUTION WIDTH 15.5 % (11.5-15.0); WHITE BLOOD COUNT (AUTO) 10.3 K/uL (4.3-11.0)
[2024-05-11 07:30] VITALS: BP 134/47; TEMP 98.8; O2SAT 94
[2024-05-11 07:57] LABS: CALCIUM, SERUM 8.4 mg/dL (8.5-10.1); CARBON DIOXIDE 25 mmol/L (21-32); CHLORIDE 106 mmol/L (98-107); CREATININE 6.5 mg/dL (0.6-1.3); GLUCOSE 81 mg/dL (74-106); MAGNESIUM 2.2 mg/dL (1.8-2.4); PHOSPHORUS 4.2 mg/dL (2.5-4.9); POTASSIUM 4.6 mmol/L (3.5-5.1); SODIUM SERUM 141 mmol/L (136-145); UREA NITROGEN, BLOOD 62 mg/dL (7-18)
[2024-05-11 08:10] LABS: CHOLESTEROL 58 mg/dL (<200); HDL CHOLESTEROL 23 mg/dL (40-60); LDL 11 mg/dL (0-99); TRIGLYCERIDES 130 mg/dL (30-150)
[2024-05-11 08:12] LABS: IRON, SERUM 21 ug/dl (50-175); TOTAL IRON BINDING CAPACITY 128 ug/dl (250-450)
[2024-05-11] MEDS: PANTOPRAZOLE 40 MG TABLET.DR PO SCH (09:07)
[2024-05-11] MEDS: EPOETIN ALFA (10,000 UNIT) 10,000 UNIT/ML VIAL IV ONE (09:08)
[2024-05-11 10:30] LABS: BAND % (MANUAL) 2 % (0.0-5.0); LYMPHOCYTES % (MANUAL) 10 % (16-48); MONOCYTES % (MANUAL) 2 % (0-11.0); NEUTROPHILS % (MANUAL) 86 (42-76); PLATELET ESTIMATE DECREASED
[2024-05-11 10:31] LABS: ANISOCYTOSIS 1+
[2024-05-11 13:24] LABS: BASOPHILS # (AUTO) 0.1 K/uL (0.0-0.2); BASOPHILS % (AUTO) 0.5 % (0.0-2.0); EOSINOPHILS % (AUTO) 0.1 % (0.0-6.0); HEMATOCRIT 24 % (39-51); LYMPHOCYTES # (AUTO) 2.2 K/uL (0.8-4.8); LYMPHOCYTES % (AUTO) 18.2 % (20.0-44.0); MEAN CORPUSCULAR HEMOGLOBIN 32 PG (26.0-33.0); MEAN CORPUSCULAR HGB CONC 34 g/dl (31.0-36.0); MEAN CORPUSCULAR VOLUME 94 fL (80-96); MONOCYTES % (AUTO) 8.3 % (2.0-12.0); NEUTROPHILS # (AUTO) 8.8 K/uL (1.8-8.9); NEUTROPHILS % (AUTO) 72.9 % (43.0-81.0); PLATELET COUNT (AUTO) 54 K/uL (150-450); RED BLOOD CELL COUNT(AUTO) 2.53 MIL/uL (4.5-6.0); RED CELL DISTRIBUTION WIDTH 15.4 % (11.5-15.0)
[2024-05-11 14:13] LABS: BAND % (MANUAL) 2 % (0.0-5.0); EOSINOPHILS % (MANUAL) 1 % (0-4); LYMPHOCYTES % (MANUAL) 19 % (16-48); MONOCYTES % (MANUAL) 7 % (0-11.0); NEUTROPHILS % (MANUAL) 70 (42-76)
[2024-05-11 14:15] LABS: ANISOCYTOSIS 1+; PLATELET ESTIMATE DECREASED
[2024-05-11 14:16] LABS: OVALOCYTES 1+
[2024-05-11] MEDS: SOD FERRIC GLUC 125 MG in IV NS 0.9% 100 ML IV SCH (14:50)
[2024-05-11] MEDS: predniSONE 1 MG TABLET PO SCH (14:52)
[2024-05-11] MEDS: SEVELAMER CARBONATE 800 MG TABLET PO SCH (14:52)
[2024-05-11 16:00] VITALS: BP 130/43; TEMP 98.4; O2SAT 93
[2024-05-11] MEDS: VANCOMYCIN POST DIALYSIS 500MG IV PRN (16:16)
[2024-05-11] MEDS: AMLODIPINE BESYLATE 5 MG TABLET PO SCH (17:08)
[2024-05-11] MEDS: hydrALAZINE HCL 25 MG TABLET PO SCH (17:08)
[2024-05-11 20:00] VITALS: BP 121/41; TEMP 98.2; O2SAT 92
[2024-05-11] MEDS: ATORVASTATIN 10 MG TABLET PO SCH (21:03)
[2024-05-12] VITALS (11 sets, daily range): BP systolic 101–126; BP diastolic 37–45; TEMP 97.4–98.2; O2SAT 90–95
[2024-05-12 06:07] LABS: HEPATITIS B SURFACE AB Non Reactive (.)
[2024-05-12 07:03] LABS: BASOPHILS % (AUTO) 0.4 % (0.0-2.0); EOSINOPHILS % (AUTO) 0.4 % (0.0-6.0); HEMATOCRIT 21 % (39-51); LYMPHOCYTES # (AUTO) 1.7 K/uL (0.8-4.8); LYMPHOCYTES % (AUTO) 18.6 % (20.0-44.0); MEAN CORPUSCULAR HEMOGLOBIN 31 PG (26.0-33.0); MEAN CORPUSCULAR HGB CONC 33 g/dl (31.0-36.0); MEAN CORPUSCULAR VOLUME 94 fL (80-96); MONOCYTES # (AUTO) 1.1 K/uL (0.1-1.30); MONOCYTES % (AUTO) 12.2 % (2.0-12.0); NEUTROPHILS # (AUTO) 6.4 K/uL (1.8-8.9); NEUTROPHILS % (AUTO) 68.4 % (43.0-81.0); PLATELET COUNT (AUTO) 55 K/uL (150-450); RED BLOOD CELL COUNT(AUTO) 2.27 MIL/uL (4.5-6.0); RED CELL DISTRIBUTION WIDTH 15.5 % (11.5-15.0); WHITE BLOOD COUNT (AUTO) 9.3 K/uL (4.3-11.0)
[2024-05-12 08:14] LABS: ALANINE AMINOTRANSFERASE 42 U/L (12-78); ALBUMIN 2.3 g/dL (3.4-5.0); ALKALINE PHOSPHATASE 56 U/L (46-116); ASPARTATE AMINOTRANSFERASE 131 U/L (15-37); BILIRUBIN,TOTAL 0.3 mg/dL (0.2-1.0); CALCIUM, SERUM 8.9 mg/dL (8.5-10.1); CARBON DIOXIDE 29 mmol/L (21-32); CHLORIDE 106 mmol/L (98-107); CREATININE 5.1 mg/dL (0.6-1.3); GLUCOSE 85 mg/dL (74-106); MAGNESIUM 2.2 mg/dL (1.8-2.4); PHOSPHORUS 3.7 mg/dL (2.5-4.9); POTASSIUM 4.2 mmol/L (3.5-5.1); SODIUM SERUM 143 mmol/L (136-145); TOTAL PROTEIN, SERUM 4.8 g/dL (6.4-8.2); UREA NITROGEN, BLOOD 44 mg/dL (7-18)
[2024-05-12] MEDS: DOXAZOSIN MESYLATE (1 MG) 1 MG TABLET PO SCH (09:00)
[2024-05-12 13:06] LABS: HIV-1 p24 ANTIGEN NON REACTIVE (NONREACTIVE); HIV-1/2 ANTIBODY NON REACTIVE (NONREACTIVE)
[2024-05-12 16:22] LABS: LYMPHOCYTES % (MANUAL) 13 % (16-48); MONOCYTES % (MANUAL) 6 % (0-11.0); NEUTROPHILS % (MANUAL) 81 (42-76)
[2024-05-12 16:23] LABS: ANISOCYTOSIS 1+; HYPOCHROMASIA 1+; PLATELET ESTIMATE DECREASED
[2024-05-12 18:43] LABS: HEMOGLOBIN 6.5 g/dL (13.5-17.5)
== END 2024-05-13 00:18 | disposition short-term general hospital (02) | DRG 314 ==
LOC: ER 09:41 → TELE 10:53
PROVIDERS: ATTEND Nurse Practitioner Family
PROC: 5A1D70Z Performance of Urinary Filtration, Intermittent, Less than 6 Hours Per Day (ICD-10-PCS; 2024-05-11)
PROC: 30233N1 Transfusion of Nonautologous Red Blood Cells into Peripheral Vein, Percutaneous Approach (ICD-10-PCS; principal; 2024-05-12)
DX: T82.838A Hemorrhage due to vascular prosthetic devices, implants and grafts, initial encounter (principal); N18.6 End stage renal disease; I13.2 Hypertensive heart and chronic kidney disease with heart failure and with stage 5 chronic kidney disease, or end stage renal disease; R78.81 Bacteremia; R50.9 Fever, unspecified; D69.6 Thrombocytopenia, unspecified; E11.22 Type 2 diabetes mellitus with diabetic chronic kidney disease; E78.5 Hyperlipidemia, unspecified; E87.5 Hyperkalemia; I25.10 Atherosclerotic heart disease of native coronary artery without angina pectoris; I48.0 Paroxysmal atrial fibrillation; Z79.01 Long term (current) use of anticoagulants; Z95.1 Presence of aortocoronary bypass graft; Z95.2 Presence of prosthetic heart valve; Z99.2 Dependence on renal dialysis; D64.9 Anemia, unspecified; B95.61 Methicillin susceptible Staphylococcus aureus infection as the cause of diseases classified elsewhere; I50.9 Heart failure, unspecified; Z85.828 Personal history of other malignant neoplasm of skin; Z20.822 Contact with and (suspected) exposure to COVID-19; Y84.8 Other medical procedures as the cause of abnormal reaction of the patient, or of later complication, without mention of misadventure at the time of the procedure; Y92.009 Unspecified place in unspecified non-institutional (private) residence as the place of occurrence of the external cause
CPT/HCPCS: 36415; 71045-TC; 73060-TC; 80048-TC; 80053-TC; 80061-TC; 80076-TC; 80202-TC; 81001; 83540-TC; 83605-TC; 83735-TC; 84100-TC; 84443-TC; 84484-TC; 85025-TC; 85027-TC; 85730-TC; 86706; 86803; 86850-TC; 87040-TC; 87081-TC; 87086-TC; 87340; 87806; 90935-TC; 93307-TC; A4223; A6253; A6403; G0378; J0692; J0885; J2543; J2916; J3370; J7030; J7040; J7050; J7060; J7512; P9016